=== PATIENT | female | born 1970 ===

== ENCOUNTER → 2022-07-06 07:03 | Outpatient (CLI) | payer OTHER ==
[~2022-07-06 07:03] MED LIST: CARAFATE1 GM PO; COZAAR50 MG PO; OMEPRAZOLE-BIC1 EAC1 PO; SULINDAC200 MG PO; TOPROL XL25 M1 PO
== END | disposition home or self-care (01) ==
LOC: LAB 07:03
PROVIDERS: ATTEND Anesthesiology
DX: Z20.822 Contact with and (suspected) exposure to COVID-19 (principal)

== ENCOUNTER 2022-07-16 05:10 | Day surgery (SDC) | payer OTHER ==
[~2022-07-16] VITALS: Ht 160 cm; Wt 88.0 kg
== END 2022-07-16 12:55 | disposition home or self-care (01) ==
LOC: CIR.AMB 05:10
PROVIDERS: ATTEND Colon & Rectal Surgery
DX: R15.9 Full incontinence of feces (principal); T85.111A Breakdown (mechanical) of implanted electronic neurostimulator of peripheral nerve electrode (lead), initial encounter; N39.498 Other specified urinary incontinence; I10 Essential (primary) hypertension; J45.909 Unspecified asthma, uncomplicated; Z99.89 Dependence on other enabling machines and devices; G47.33 Obstructive sleep apnea (adult) (pediatric); G43.909 Migraine, unspecified, not intractable, without status migrainosus
CPT/HCPCS: 64581; 64590; 95972; C1778; C1767